=== PATIENT | male | born 1970 | race African-American/Black ===

== ENCOUNTER 2019-09-27 11:21 | Emergency (ER) | payer SELFPAY ==
[~2019-09-27] VITALS: Ht 177.8 cm; Wt 71.2 kg
--- NOTE | 2019-09-27 11:37 | NUR ---
PT WHEELCHAIR ASSISTED TO BED 11
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
--- NOTE | 2019-09-27 11:40 | NUR ---
DR LEONARDO AT BEDSIDE EXAMINING PT
[2019-09-27] MEDS ORDERED: KETOROLAC 30 MG/ML VIAL IM ONE (11:50)
[2019-09-27 12:01] VITALS: BP 129/84
--- NOTE | 2019-09-27 12:02 | NUR ---
Patient discharged with v/s stable. Written and verbal after care instructions given and explained. Patient alert, oriented and verbalized understanding of instructions. Ambulatory with steady gait. All questions addressed prior to discharge. ID band removed. Patient advised to follow up with PMD. Rx of FLEXERIL given. Patient educated on indication of medication including possible reaction and side effects. Opportunity to ask questions provided and answered.
== END 2019-09-27 12:02 | disposition home or self-care (01) ==
LOC: MED 11:21
DX: M54.5 Low back pain (principal)
CPT/HCPCS: 96372; 99283; J1885

== ENCOUNTER 2020-02-25 13:29 | Emergency (ER) | payer SELFPAY ==
[~2020-02-25] VITALS: Ht 180.3 cm; Wt 66.2 kg
[2020-02-25 13:33] VITALS: BP 114/74
--- NOTE | 2020-02-25 13:36 | NUR ---
Pt ambulated to bed 2.
--- NOTE | 2020-02-25 13:42 | NUR ---
C/O DIZZINESS WITH H/A X 3 WEEKS, INTERMITTENT NAUSEA , PT AOX4 ,AFIBRILE , AMBULATORY WITH STEADY GAIT , PINK PALPEBRAL COJUNCTIVA , ANICTERIC SCLERA , SCE , FLAT SOFT ABDOMEN. PMH- DENIES RX- DENIES
--- NOTE | 2020-02-25 13:46 | NUR ---
dr remy at bedside evaluating pt.
[2020-02-25] MEDS ORDERED: KETOROLAC 15 MG/ML VIAL IVP ONE (13:50)
[2020-02-25] MEDS ORDERED: NACL 0.9% 1,000 ML IV ONE (13:50)
[2020-02-25] MEDS ORDERED: ACETAMINOPHEN EXTRA STRENGTH 500 MG TAB PO ONE (13:50)
[2020-02-25] MEDS ORDERED: PROCHLORPERAZINE 10 MG/2 ML VIAL IVP ONE (13:50)
--- NOTE | 2020-02-25 14:21 | NUR ---
DR LOPEZ AT BEDSIDE REEVALUATING PT. PT REFUSE FURTHER LAB WORKS AND CT SCAN PER DR LOPEZ.
--- NOTE | 2020-02-25 14:33 | NUR ---
PT COMFORTABLE IN BED SIDE RAILS UP X1 AND LOCK AT LOWEST POSITION.,
[2020-02-25 15:13] VITALS: BP 125/69
--- NOTE | 2020-02-25 15:13 | NUR ---
Patient discharged with v/s stable. Written and verbal after care instructions given and explained regarding dizziness. Patient alert, oriented and verbalized understanding of instructions. Ambulatory with steady gait. All questions addressed prior to discharge. ID band removed. Patient advised to follow up with PMD. Rx of reglan given. Patient educated on indication of medication including possible reaction and side effects. Opportunity to ask questions provided and answered. pt instructed to avoid alcohol with h/a and to increase fluids
== END 2020-02-25 15:13 | disposition home or self-care (01) ==
LOC: MED 13:29
DX: G44.209 Tension-type headache, unspecified, not intractable (principal); E86.0 Dehydration; R42 Dizziness and giddiness
CPT/HCPCS: 82948; 93005; 96361; 96374; 96375; 99284; J0780; J1885

== ENCOUNTER 2020-02-28 18:15 | Emergency (ER) | payer SELFPAY ==
[~2020-02-28] VITALS: Ht 170.2 cm; Wt 68.0 kg
[2020-02-28 18:18] VITALS: BP 139/72
--- NOTE | 2020-02-28 18:27 | NUR ---
PT AMB TO BED 3
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
--- NOTE | 2020-02-28 19:09 | NUR ---
Report given to MARELY Benítez. Transfer of care at this time
--- NOTE | 2020-02-28 19:12 | NUR ---
REPORT RECEIVED FROM MARELY DURHAM FOR CONTINUATION OF CARE.
--- NOTE | 2020-02-28 19:27 | NUR ---
ERMD AT BEDSIDE FOR MEDICAL EVALUATION.
[2020-02-28] MEDS ORDERED: diphenhydrAMINE 50 MG/ML VIAL IM ONE (19:40)
--- NOTE | 2020-02-28 20:06 | NUR ---
PT STATES HE IS FEELING A LITTLE BETTER AFTER THE BENADRYL, ERMD MADE AWARE.
[2020-02-28 20:34] VITALS: BP 141/76
--- NOTE | 2020-02-28 20:34 | NUR ---
Patient discharged with v/s stable. Written and verbal after care instructions given and explained. Patient alert, oriented and verbalized understanding of instructions. Ambulatory with steady gait. All questions addressed prior to discharge. ID band removed. Patient advised to follow up with PMD. Rx of NEYMAR & NAPROSYN given. Patient educated on indication of medication including possible reaction and side effects. Opportunity to ask questions provided and answered.
== END 2020-02-28 20:34 | disposition home or self-care (01) ==
LOC: MED 18:15
DX: J32.9 Chronic sinusitis, unspecified (principal); R51.9 Headache, unspecified; F17.210 Nicotine dependence, cigarettes, uncomplicated
CPT/HCPCS: 96372; 99283; J1200

== ENCOUNTER 2020-02-29 20:48 | Emergency (ER) | payer SELFPAY ==
[~2020-02-29] VITALS: Ht 177.8 cm; Wt 68.0 kg
[2020-02-29 20:48] VITALS: BP 122/81
--- NOTE | 2020-02-29 20:52 | NUR ---
PT TAKEN TO BED 5
--- NOTE | 2020-02-29 21:11 | NUR ---
LAB AT BEDSIDE.
--- NOTE | 2020-02-29 21:12 | NUR ---
DR. WEBBER AT BEDSIDE FOR MEDICAL EVALUATION.
--- NOTE | 2020-02-29 21:12 | NUR ---
49 Y/O, M, BROUGHT IN TO ER WITH C/O HEADACHE. PER PT's , PT FELL AND HIT HIS HEAD, PT WAS DIZZY AND "ACTING FUNNY" PT UNABLE TO RECALL FALL AND NOT MAKING SENSE. CURRENTLY PT ANOx4, STATES HE DOES NOT REMEMBER FALLING AND HITTING HIS HEAD OR RIBS. NO PAST MEDICAL HX, NKA, DENIES ALCOHOL OR DRUG USE. SAFETY MEASURES IN PLACE, NO DISTRESS NOTED.
--- NOTE | 2020-02-29 21:12 | NUR ---
PT PROVIDED URINAL FOR ENCOURAGEMENT OF URINE SAMPLE
[2020-02-29] MEDS ORDERED: NACL 0.9% 1,000 ML IV ONE (21:20)
[2020-02-29] MEDS ORDERED: KETOROLAC 30 MG/ML VIAL IVP ONE (21:20)
[2020-02-29 21:36] LABS: BASOPHILS # (AUTO) 0.1 K/uL (0.00-0.22); BASOPHILS % (AUTO) 1.3 % (0.0-2.0); EOSINOPHILS # (AUTO) 0.1 K/uL (0-0.4); EOSINOPHILS % (AUTO) 1.3 % (0.0-4.0); HEMATOCRIT 46.4 % (36-52); HEMOGLOBIN 15.5 g/dL (12.0-18.0); LYMPHOCYTES # (AUTO) 1.9 K/uL (2.0-11.5); LYMPHOCYTES % (AUTO) 17.2 % (20.5-51.1); MEAN CORPUSCULAR HEMOGLOBIN 30 pg (27-31); MEAN CORPUSCULAR HGB CONC 33 g/dL (33-37); MEAN CORPUSCULAR VOLUME 90.5 fL (80-94); MONOCYTES # (AUTO) 0.6 K/uL (0.8-1.0); NEUTROPHILS # (AUTO) 8.4 K/uL (1.8-7.7); NEUTROPHILS % (AUTO) 75.2 % (42.2-75.2); PLATELET COUNT (AUTO) 226 K/uL (140-450); RED BLOOD CELL COUNT(AUTO) 5.13 MIL/uL (4.20-6.10); RED CELL DISTRIBUTION WIDTH 13.7 % (11.6-13.7); WHITE BLOOD COUNT (AUTO) 11.2 K/uL (4.8-10.8)
--- NOTE | 2020-02-29 21:49 | NUR ---
PT TAKEN TO CT
[2020-02-29 21:52] LABS: ALBUMIN 3.9 g/dL (3.4-5.0); ANION GAP 14.7 (8-16); ASPARTATE AMINOTRANSFERASE 24 U/L (15-37); CARBON DIOXIDE 24.9 mmol/L (21-32); CHLORIDE 102 mmol/L (98-107); CREATININE 1.1 mg/dL (0.6-1.3); GFR ARICAN-AMERICAN 91 mL/min (>90); GLUCOSE 113 mg/dL (74-106); POTASSIUM 3.6 mmol/L (3.5-5.1); SALICYLATE 4.6 mg/dL (2.8-20.0); SODIUM SERUM 138 mmol/L (136-145); TOTAL BILIRUBIN 0.5 mg/dL (0.0-1.0); UREA NITROGEN, BLOOD 9 mg/dL (7-18)
[2020-02-29 21:53] LABS: ACETAMINOPHEN < 0.5 ug/ml (10-30)
[2020-02-29] MEDS ORDERED: ETOMIDATE 20 MG/10 ML VIAL IVP ONE (22:00)
[2020-02-29] MEDS ORDERED: SUCCINYLCHOLINE CHLORIDE 200 MG/10 ML VIAL IVP ONE (22:00)
[2020-02-29] MEDS ORDERED: ROCURONIUM 50 MG/5 ML VIAL IV ONE (22:00)
--- NOTE | 2020-02-29 22:15 | NUR ---
PT RETURN FROM CT
[2020-02-29] MEDS ORDERED: levETIRAcetam 1,000 MG in NACL 0.9% 100 ML IV ONE (22:20)
[2020-02-29 22:23] LABS: BARBITURATE, URINE NEGATIVE ng/ml (NEG <=200); BENZODIAZEPINE, URINE NEGATIVE ng/mL (NEG <=200); CANNABINOID, URINE POSITIVE ng/mL (NEG <=50); COCAINE, URINE NEGATIVE ng/mL (NEG <=300); OPIATE, URINE NEGATIVE ng/mL (NEG <=2000); PHENCYCLIDINE SCREEN,URINE NEGATIVE ng/mL (NEG <=25)
[2020-02-29] MEDS ORDERED: INTUBATION KIT MC ONE (22:34)
[2020-02-29] MEDS ORDERED: levETIRAcetam 100 MG/ML VIAL IV ONE (22:35)
[2020-02-29] MEDS ORDERED: OSMITROL 25% 12.5 GM/50 ML VIAL IV ONE (22:45)
--- NOTE | 2020-02-29 23:04 | NUR ---
SPOKE WITH MARELY BO AT [facility]. GAVE REPORT ON PATIENT. ACCEPTING PHYSICIAN SIVAKUMAR COLLADO.
--- NOTE | 2020-02-29 23:17 | NUR ---
SPOKE WITH PT's TO UPDATE ON PT's CONDITION AND PLAN. ALL QUESTIONS ANSWERED, AWARE PICKUP TIME IN 2 HOURS.
[2020-02-29 23:28] LABS: PROTHROMBIN TIME 16.4 secs (10.8-13.4)
--- NOTE | 2020-03-01 00:02 | NUR ---
[facility] TRANSPORT AT BEDSIDE
--- NOTE | 2020-03-01 00:08 | NUR ---
PT NOT IN DISTRESS, ID BAND REMOVED. VSS. REPORT GIVEN TO [facility], FORMS FILLED AND PACKET GIVEN TO [facility]. TRANSFER OF CARE AT THIS TIME. CALLED MARELY BO AT [facility] TO MAKE AWARE OF PATIENT ON THE WAY.
[2020-03-01 00:12] VITALS: BP 127/74
--- NOTE | 2020-03-01 00:16 | NUR ---
PT TAKEN BY [facility] TRANSPORT TO [facility] ER
== END 2020-03-01 00:16 | disposition home or self-care (01) ==
LOC: MED 20:48
DX: S06.5X0A Traumatic subdural hemorrhage without loss of consciousness, initial encounter (principal); X58.XXXA Exposure to other specified factors, initial encounter; Y93.89 Activity, other specified; Y92.89 Other specified places as the place of occurrence of the external cause; Y99.8 Other external cause status
CPT/HCPCS: 36415; 70450; 72131; 80053; 80305; 85025; 85610; 85730; 93005; 96361; 96365; 96375; 99291; G0480; G0482; J0330; J1885; J1953; J2150; J3490; J7030; 99285

== ENCOUNTER 2020-10-02 20:23 | Emergency (ER) | payer OTHER ==
[~2020-10-02] VITALS: Ht 170.2 cm; Wt 77.1 kg
[2020-10-02 20:38] VITALS: BP 119/71
[2020-10-02 23:44] VITALS: BP 119/71
== END 2020-10-02 23:30 | disposition left against medical advice (07) ==
LOC: MED 20:23
DX: R51.9 Headache, unspecified (principal); R42 Dizziness and giddiness; Z79.899 Other long term (current) drug therapy
CPT/HCPCS: 70450; 99284

== ENCOUNTER 2020-10-18 21:14 | Emergency (ER) | payer OTHER ==
[~2020-10-18] VITALS: Ht 177.8 cm; Wt 70.3 kg
[2020-10-18 21:20] VITALS: BP 107/68
[2020-10-18] MEDS: HYDROcodone/APAP 5/325 MG 1 TAB TAB PO ONE (22:58)
[2020-10-18] MEDS ORDERED: ACET-9527 PO (23:32)
[2020-10-18] MEDS ORDERED: ACET-503 PO (23:34)
[2020-10-18 23:52] VITALS: BP 107/68
== END 2020-10-18 23:52 | disposition home or self-care (01) ==
LOC: MED 21:14
DX: R51.9 Headache, unspecified (principal); W22.09XD Striking against other stationary object, subsequent encounter; Z88.1 Allergy status to other antibiotic agents
CPT/HCPCS: 99283

== ENCOUNTER 2020-11-21 17:47 | Emergency (ER) | payer OTHER ==
[~2020-11-21 17:47] MED LIST: ACET-503 PO
--- NOTE | 2020-11-21 18:01 | NUR ---
PATIENT LEFT WITHOUT BEING SEEN BY DR. VEE. NO FURTHER CARE PROVIDED FOR PATIENT.
== END 2020-11-21 18:01 | disposition left against medical advice (07) ==
LOC: MED 17:47
DX: M25.569 Pain in unspecified knee (principal); Z53.21 Procedure and treatment not carried out due to patient leaving prior to being seen by health care provider

== ENCOUNTER 2021-06-29 21:54 | Emergency (ER) | payer OTHER ==
[~2021-06-29] VITALS: Ht 177.8 cm; Wt 67.3 kg
[2021-06-29 22:09] VITALS: BP 122/67
--- NOTE | 2021-06-29 22:16 | NUR ---
PT TAKEN TO LOBBY.
--- NOTE | 2021-06-29 22:56 | NUR ---
PT TAKEN TO CT.
--- NOTE | 2021-06-29 23:12 | NUR ---
pt is in lobby.
[2021-06-30] MEDS ORDERED: CIPR500T4 PO (00:01)
[2021-06-30] MEDS ORDERED: NICO1PAT16 TP (00:01)
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
[2021-06-30] MEDS ORDERED: NIMODIPINE 30 MG PO ONE (00:35)
[2021-06-30] MEDS ORDERED: levETIRAcetam 1,000 MG in NACL 0.9% 100 ML IV ONE (00:35)
--- NOTE | 2021-06-30 00:37 | NUR ---
CALLED [facility] FOR TRAUMA TRANSFER AND GIVEN 18 MIN ETA
--- NOTE | 2021-06-30 00:37 | NUR ---
PT TAKEN TO ER BED 09
--- NOTE | 2021-06-30 00:45 | NUR ---
CALLED [facility] AND GAVE REPORT TO LEBRON YAP/ESPERANZA.
--- NOTE | 2021-06-30 00:56 | NUR ---
[facility] ARRIVED AT 0045
[2021-06-30 01:05] VITALS: BP 126/74
== END 2021-06-30 00:50 | disposition short-term general hospital (02) ==
LOC: MED 21:54
DX: I60.9 Nontraumatic subarachnoid hemorrhage, unspecified (principal); F17.210 Nicotine dependence, cigarettes, uncomplicated; Z79.899 Other long term (current) drug therapy; Z88.1 Allergy status to other antibiotic agents; Z71.6 Tobacco abuse counseling
CPT/HCPCS: 70450; 99291; J1953

== ENCOUNTER 2021-08-17 21:16 | Emergency (ER) | payer OTHER ==
[~2021-08-17] VITALS: Ht 177.8 cm; Wt 71.2 kg
[~2021-08-17 21:16] MED LIST changes: +CIPR500T4 PO; +NICO1PAT16 TP
[2021-08-17 21:39] VITALS: BP 144/87
--- NOTE | 2021-08-17 22:48 | NUR ---
PT TAKEN TO ER BED 03
--- NOTE | 2021-08-17 23:09 | NUR ---
er at bedside
[2021-08-17] MEDS ORDERED: KETOROLAC 30 MG/ML VIAL IM ONE (23:20)
[2021-08-17] MEDS ORDERED: methocarbamoL 500 MG TAB PO ONE (23:20)
[2021-08-17] MEDS ORDERED: LIDOCAINE 5% 1 EA PATCH TP ONE (23:55)
--- NOTE | 2021-08-18 | NUR ---
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 PATIENT DENIES SOB, NAUSEA, VOMITING, CP AT THIS TIME. PMHX ANEURYSM, SCIATIC NERVE DENIES MEDICATION ALLERGIES: PNC
--- NOTE | 2021-08-18 00:08 | NUR ---
MD AT BEDSIDE ASSESSING PATIENT
[2021-08-18] MEDS ORDERED: METH-1681 PO (00:12)
[2021-08-18] MEDS ORDERED: IBUP-2213 PO (00:12)
[2021-08-18] MEDS ORDERED: LID5T TP (00:12)
--- NOTE | 2021-08-18 00:43 | NUR ---
Patient discharged with v/s stable. Written and verbal after care instructions given Sciatica and Radicular pain and explained. Patient alert, oriented and verbalized understanding of instructions. Ambulatory with steady gait. All questions addressed prior to discharge. ID band removed. Patient advised to follow up with PMD. Rx of Ibuprofen, Methocarbomol and lidocaine given.
[2021-08-18 00:45] VITALS: BP 122/74
--- NOTE | 2021-08-18 00:52 | NUR ---
DISCHARGE DISPOSITION REVIEWED
[2021-08-18] MEDS ORDERED: LIDOCAINE 5% 1 EA PATCH TP SCH (09:00)
== END 2021-08-18 00:43 | disposition home or self-care (01) ==
LOC: MED 21:16
DX: M54.18 Radiculopathy, sacral and sacrococcygeal region (principal); F17.210 Nicotine dependence, cigarettes, uncomplicated; Z79.899 Other long term (current) drug therapy; Z98.890 Other specified postprocedural states; Z88.1 Allergy status to other antibiotic agents; Z71.6 Tobacco abuse counseling
CPT/HCPCS: 96372; 99283; J1885

== ENCOUNTER 2022-11-17 09:06 | Emergency (ER) | payer OTHER ==
[~2022-11-17] VITALS: Ht 177.8 cm; Wt 68.9 kg
[~2022-11-17 09:06] MED LIST changes: +IBUP-2213 PO; +LID5T TP; +METH-1681 PO
[2022-11-17 09:32] VITALS: BP 95/50; PULSE 98; RESP 18; TEMP 97.1; O2SAT 97
[2022-11-17] MEDS ORDERED: CYCL-711 PO (10:32)
[2022-11-17] MEDS ORDERED: IBUP-2213 PO (10:32)
--- NOTE | 2022-11-17 10:38 | NUR ---
Patient discharged with v/s stable. Written and verbal after care instructions given and explained. Patient alert, oriented and verbalized understanding of instructions. Ambulatory with steady gait. All questions addressed prior to discharge. ID band removed. Patient advised to follow up with PMD. Rx of FLEXERIL, MOTRIN given. Patient educated on indication of medication including possible reaction and side effects. Opportunity to ask questions provided and answered.
== END 2022-11-17 10:14 | disposition home or self-care (01) ==
LOC: MED 09:06
DX: S20.211A Contusion of right front wall of thorax, initial encounter (principal); M54.50 Low back pain, unspecified; Z88.8 Allergy status to other drugs, medicaments and biological substances; Z79.899 Other long term (current) drug therapy; V49.88XA Car occupant (driver) (passenger) injured in other specified transport accidents, initial encounter; Y93.89 Activity, other specified; Y92.89 Other specified places as the place of occurrence of the external cause; Y99.8 Other external cause status
CPT/HCPCS: 99283

== ENCOUNTER 2023-02-25 20:27 | Emergency (ER) | payer OTHER ==
[~2023-02-25] VITALS: Ht 177.8 cm; Wt 67.6 kg
[~2023-02-25 20:27] MED LIST changes: +CYCL-711 PO
[2023-02-25 20:49] VITALS: BP 106/79; PULSE 97; RESP 18; TEMP 97.8; O2SAT 99
[2023-02-26] MEDS: KETOROLAC 30 MG/ML VIAL IM ONE (00:02)
[2023-02-26] MEDS: ACETAMINOPHEN EXTRA STRENGTH 500 MG TAB PO ONE (00:02)
== END 2023-02-26 01:36 | disposition home or self-care (01) ==
LOC: MED 20:27
DX: R07.81 Pleurodynia (principal); Z88.8 Allergy status to other drugs, medicaments and biological substances; Z79.899 Other long term (current) drug therapy
CPT/HCPCS: 71101; 96372; 99283; J1885

== ENCOUNTER 2023-03-27 11:37 | Emergency (ER) | payer OTHER ==
[~2023-03-27] VITALS: Ht 177.8 cm; Wt 68.0 kg
[2023-03-27 11:55] VITALS: BP 119/42; PULSE 45; RESP 18; TEMP 96.5; O2SAT 99
[2023-03-27] MEDS ORDERED: KETOROLAC 60 MG/2 ML VIAL IM ONE (12:50)
[2023-03-27] MEDS ORDERED: NAPR-54 PO (12:50)
[2023-03-27] MEDS ORDERED: LID5T TP (12:50)
[2023-03-27] MEDS ORDERED: CYCL-711 PO (12:50)
== END 2023-03-27 12:58 | disposition home or self-care (01) ==
LOC: MED 11:37
DX: M25.552 Pain in left hip (principal); Z79.899 Other long term (current) drug therapy; Z79.1 Long term (current) use of non-steroidal anti-inflammatories (NSAID); Z79.2 Long term (current) use of antibiotics; Z88.0 Allergy status to penicillin
CPT/HCPCS: 96372; 99283; J1885

== ENCOUNTER 2023-04-27 12:09 | Emergency (ER) | payer OTHER ==
[~2023-04-27] VITALS: Ht 177.8 cm; Wt 65.3 kg
[~2023-04-27 12:09] MED LIST changes: +NAPR-54 PO
[2023-04-27 12:12] VITALS: BP_SYST 11; BP_SYST 111; BP_DIAS 81; PULSE 63; RESP 20; TEMP 99.3; O2SAT 96
[2023-04-27] MEDS ORDERED: KETOROLAC 30 MG/ML VIAL IM ONE (12:40)
[2023-04-27] MEDS ORDERED: CLIN300C2 PO (12:44)
== END 2023-04-27 13:12 | disposition home or self-care (01) ==
LOC: MED 12:09
DX: K04.7 Periapical abscess without sinus (principal); Z79.899 Other long term (current) drug therapy; Z79.2 Long term (current) use of antibiotics; Z79.1 Long term (current) use of non-steroidal anti-inflammatories (NSAID); Z88.0 Allergy status to penicillin
CPT/HCPCS: 96372; 99283; J1885